=== PATIENT | female | born 1935 | race Caucasian/White ===

== ENCOUNTER 2016-07-02 15:29 | Emergency (ER) | payer MEDICARE, OTHER ==
[~2016-07-02] VITALS: Ht 154.9 cm; Wt 81.8 kg
[~2016-07-02 15:29] MED LIST: ASPI81TA2 PO; CARI250T7 PO; CARV3 PO; CIPR-279 PO; CLOP75 PO; HYDR50 PO; PANT40TA25 PO; ROSU10 PO; VALS1TAB48 PO
[2016-07-02 16:10] LABS: GLUCOSE,POINT OF CARE 96 MG/DL (70-110)
[2016-07-02] MEDS ORDERED: ACETAMINOPHEN 500 MG TABLET PO ONE (16:15)
[2016-07-02 18:05] VITALS: BP 143/77
[2016-07-02] MEDS ORDERED: TraMADol HCL 50 MG TABLET PO ONE (18:15)
== END 2016-07-02 19:15 | disposition home or self-care (01) ==
LOC: EMS 15:31
DX: S52.501A Unspecified fracture of the lower end of right radius, initial encounter for closed fracture (principal); E11.9 Type 2 diabetes mellitus without complications; I10 Essential (primary) hypertension; E78.00 Pure hypercholesterolemia, unspecified; Z79.82 Long term (current) use of aspirin; Z88.8 Allergy status to other drugs, medicaments and biological substances; V49.88XA Car occupant (driver) (passenger) injured in other specified transport accidents, initial encounter; Y93.89 Activity, other specified; Y92.89 Other specified places as the place of occurrence of the external cause; Y99.8 Other external cause status
CPT/HCPCS: 72040; 82962; 93005; 99284